=== PATIENT | female | born 1960 | race Caucasian/White ===

== ENCOUNTER → 2020-07-13 | Outpatient (CLI) | payer BC ==
--- NOTE | 2020-07-13 12:07 | DRAGON STRESS TEST REPORT ---
Exercise nuclear stress test Date: July 13, 2020 Referring physician: Dr. Suraj Reagan ([facility] Performing physician: Presley Hurt MD Indication: Chest pain Clinical history 59-year-old lady with medical history significant for systemic hypertension who presented with several episodes of chest pain. Her EKG was nondiagnostic for myocardial ischemia. Based on the fact that she was having chest pain with hypertension as medical therapy and with some family history of coronary artery disease we decided to proceed with exercise nuclear stress test. Procedure The patient presented to the stress lab. Initially rest images were obtained according to standard protocol after the injection of 11.84 millicurie technetium 99m sestamibi. Subsequently the patient underwent exercise nuclear stress test according to Bill protocol. The patient exercised on the treadmill according to Bill protocol for a total of 5 minutes and 59 seconds achieving a maximum heart rate of 151 bpm which was 93 % of maximum predicted of 161 bpm. The maximum workload was 7 METS. The presenting EKG showed sinus rhythm with incomplete right bundle branch block at 75 bpm. The initial blood pressure was 173/101 mmHg. Upon exercise the heart rate lucia to a maximum of 151 beats per minute and the blood pressure lucia to a maximum of 189/111 mmHg. The patient had appropriate increment in heart rate and hypertensive response of blood pressure with exercise. At peak exercise the patient was injected with 33.3 millicuries of technetium 99m sestamibi. The patient continued to run on the treadmill for another 60 seconds. The exercise EKG was negative for myocardial ischemia. The recovery EKG did not reveal any evidence of myocardial ischemia. The patient tolerated the exercise well and did not report chest pain or dyspnea. The test was terminated on account of patient fatigue and patient having achieved target heart rate. The patient's EKG and vital signs were monitored throughout the procedure. After a period of rest, stress images were obtained according to standard protocol. Raw as well as processed rest and stress images were reviewed. There was mild gut uptake which did not interfere with the study. The rest and stress images show uniform uptake of radioactive isotope without any fixed or reversible defects to suggest myocardial ischemia or myocardial infarction. There is normal contractility post-stress. The calculated ejection fraction is 62%. The TID ratio is 0.96. Conclusion The exercise EKG is negative for myocardial ischemia. There is no scintigraphic evidence for myocardial ischemia or myocardial infarction. Moderate exercise tolerance. Normal heart rate and blood pressure response to exercise. There is normal contractility post stress. Gated left ventricular ejection fraction is estimated at 60 to %. The patient will be given an appointment to discuss the stress results. Continue risk factor modification is necessary MTDD
== END ==
LOC: RAD 06-29 08:02
PROVIDERS: ATTEND Internal Medicine
DX: R07.9 Chest pain, unspecified (principal); I10 Essential (primary) hypertension; I77.810 Thoracic aortic ectasia; Z82.49 Family history of ischemic heart disease and other diseases of the circulatory system
CPT/HCPCS: 93017; 78452; A9500; Q9969